=== PATIENT | male | born 1990 | race Caucasian/White ===

== ENCOUNTER 2018-03-01 09:58 | Emergency (ER) | payer OTHER ==
[2018-03-01 10:21] VITALS: BP 138/84
--- NOTE | 2018-03-01 10:43 | ED ---
Lower Extremity - HPI Summary HPI Summary: Patient is a 27-year-old male who presents after a wrestling incident to the right ankle. He states he was put in a Achilles LOC which pulls up on the Achilles tendon intending to snap at. This occurred yesterday and he is then unable to ambulate since that time. There is diffuse ecchymosis and swelling to the medial and lateral sides of the ankle. Pain is 5 out of 10, constant and throbbing, worse with ambulation, better with rest. He has been icing the ankle. He arising crutches, however he does not have the area wrapped. He has never injured the ankle before. He has not been taking any medication for relief and states he is otherwise well and denies any other complaints. Denies any numbness or tingling to the area. Denies any temperature changes. Pulses + 2 intact bilaterally P [place] and posterior tibial. - History of Current Complaint Chief Complaint: EDExtremityLower Stated Complaint: RT ANKLE INJURY Time Seen by Provider: 03/01/18 10:02 Hx Obtained From: Patient Mechanism Of Injury: Twisted Onset of Pain: Immediate Onset/Duration: Days Severity Initially: Mild Severity Currently: Mild Pain Intensity: 2 Pain Scale Used: 0-10 Numeric Timing: Constant Location: Is Discrete @ - Right medial and lateral ankle Character Of Pain: Aching Aggravating Factor(s): Standing, Ambulation Alleviating Factor(s): Rest Able to Bear Weight: No - Risk Factors Gout Risk Factors: Negative DVT Risk Factors: Negative Septic Arthritis Risk Factor: Negative - Allergies/Home Medications Allergies/Adverse Reactions: Allergies Allergy/AdvReac Type Severity Reaction Status Date / Time No Known Allergies Allergy Verified 03/01/18 10:31 PMH/Surg Hx/FS Hx/Imm Hx Previously Healthy: Yes Respiratory History: Reports: Hx Asthma - albuterol nebs and inhalers as needed - Immunization History Hx Pertussis Vaccination: No Immunizations Up to Date: Unable to Obtain/Confirm Infectious Disease History: No Infectious Disease History: Denies: History Other Infectious Disease, Traveled Outside the [place] in Last 30 Days - Family History Known Family History: Positive: None - Social History Occupation: Employed Full-time Lives: With Family Alcohol Use: None Hx Substance Use: Yes Substance Use Type: Reports: Marijuana Hx Tobacco Use: No Smoking Status (MU): Never Smoked Tobacco Review of Systems Constitutional: Negative Negative: Fever, Chills, Fatigue, Skin Diaphoresis Negative: Photophobia, Blurred Vision ENT: Negative Cardiovascular: Negative Negative: Shortness Of Breath, Cough Genitourinary: Negative Positive: no symptoms reported, see HPI Positive: Arthralgia - bilateral ankle swelling and ecchymosis with pain Positive: Bruising Neurological: Negative All Other Systems Reviewed And Are Negative: Yes Physical Exam Triage Information Reviewed: Yes Vital Signs On Initial Exam: Initial Vitals Temp Pulse Resp BP Pulse Ox 98.2 F 74 20 138/84 99 03/01/18 10:18 03/01/18 10:18 03/01/18 10:18 03/01/18 10:18 03/01/18 10:18 Vital Signs Reviewed: Yes Appearance: Positive: Well-Appearing, Well-Nourished Skin: Positive: Warm, Skin Color Reflects Adequate Perfusion, Other - Ecchymosis to the medial and lateral ankle Head/Face: Positive: Normal Head/Face Inspection Eyes: Positive: EOMI, GYPSY, Conjunctiva Clear Neck: Positive: Supple, No Lymphadenopathy Respiratory/Lung Sounds: Positive: Clear to Auscultation, Breath Sounds Present Cardiovascular: Positive: Normal, Pulses are Symmetrical in both Upper and Lower Extremities Musculoskeletal: Positive: Pain @ - Plantar flexion and dorsiflexion of the right ankle. Denies any knee pain. Able to move about the toes freely Neurological: Positive: Speech Normal Psychiatric: Positive: Normal, Affect/Mood Appropriate AVPU Assessment: Alert Diagnostics - Vital Signs Vital Signs Temp Pulse Resp BP Pulse Ox 03/01/18 10:18 98.2 F 74 20 138/84 99 - Laboratory Lab Statement: Any lab studies that have been ordered have been reviewed, and results considered in the medical decision making process. Lower Extremity Course/Dx - Course Course Of Treatment: During the course of treatment, pulses obtained immediately on arrival due to swelling and ecchymosis around the area. Pulses + 2 intact bilaterally. Radial and posterior tibial. He denies any numbness or tingling and is able to plantarflex and dorsiflex. While lying in prone position, Achilles tendon with localized tenderness on palpation superior to the insertion of the tendon, however plantar flexion while squeezing gastrocnemius shows negative De Santiago test. Negative metal S tests. No crepitus with passive motion. Normal cap refill. Comparison to unaffected side , the right ankle is swollen both laterally and medially with ecchymosis surrounding. IMPRESSION: 1. JOINT EFFUSION OF THE RIGHT ANKLE WITH SOFT TISSUE SWELLING. 2. NO ACUTE OSSEOUS INJURY TO THE RIGHT ANKLE OR RIGHT FOOT. IF SYMPTOMS PERSIST,. RECOMMEND REPEAT IMAGING. Patient continues to be unable to bear weight. I have given him a follow-up with Dr. Galvin. The ankle was David bandaged. He will follow-up with Dr. Galvin this week. He is to elevate it, ice it and stay nonweightbearing unless tolerated. - Diagnoses Differential Diagnosis/HQI/PQRI: Positive: Contusion, Dislocation, Sprain, Strain, Tendonitis Provider Diagnoses: Joint effusion Discharge - Sign-Out/Discharge Documenting (check all that apply): Discharge/Admit/Transfer - Discharge Plan Condition: Stable Disposition: HOME Patient Education Materials: Swollen Ankle Joint (ED) Referrals: Lita Law MD [Primary Care Provider] - Dilan Galvin MD [Medical Doctor] - Additional Instructions: Please keep the ankle wrapped Ice and elevation Follow-up with Dr. Galvin in his office Call today or tomorrow for an appointment Stay nonweightbearing unless you are beginning to be able to tolerate it Use your crutches - Billing Disposition and Condition Condition: STABLE Disposition: HOME
--- NOTE | 2018-03-01 11:33 | RAD ---
HISTORY: Right ankle injury, right foot injury COMPARISONS: January 01, 2016 VIEWS: 6, Frontal, lateral, and oblique views of the right ankle and right foot FINDINGS: BONE DENSITY: Normal. BONES: There is no displaced fracture. 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 This can be identified in retrospect on the previous examination and is essentially stable. JOINTS: There is no arthropathy. There is a tibiotalar joint effusion. ALIGNMENT: There is no dislocation. SOFT TISSUES: There is circumferential soft tissue swelling at the ankle. OTHER FINDINGS: None. IMPRESSION: 1. JOINT EFFUSION OF THE RIGHT ANKLE WITH SOFT TISSUE SWELLING. 2. NO ACUTE OSSEOUS INJURY TO THE RIGHT ANKLE OR RIGHT FOOT. IF SYMPTOMS PERSIST, RECOMMEND REPEAT IMAGING
== END 2018-03-01 12:38 | disposition home or self-care (01) ==
LOC: ED 09:58
DX: M25.471 Effusion, right ankle (principal); R60.0 Localized edema
CPT/HCPCS: 99281

== ENCOUNTER 2018-08-13 19:18 | Emergency (ER) | payer SELFPAY ==
[2018-08-13 19:48] VITALS: BP 118/81
--- NOTE | 2018-08-13 20:51 | UC ---
Ear Complaint HPI - HPI Summary HPI Summary: 27 y/o male presents to the urgent care c/o left ear pain and swollen lymph node around left ear for the past 4 days. Pt also c/o of rash in his scalp and mid chest. 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 He usually applies Ketaconazole cream, but now rash has some yellowish crusting over. Ear pain is dull 2/10 associated w/ some lumps in the neck . Pt denies fever, decrease hearing, tinnitus, SOB, dizziness, URI, chest pain abdominal pain. N/v/ D - History of Current Complaint Chief Complaint: UCEar Stated Complaint: EAR PAIN Time Seen by Provider: 08/13/18 20:35 Hx Obtained From: Patient Onset/Duration: Gradual Onset, Lasting Days - 4 days, Still Present, Worse Since - yesterday Severity Initially: Mild Severity Currently: Mild Pain Intensity: 3 Pain Scale Used: 0-10 Numeric Aggravating Factors: Other - touch Alleviating Factors: Nothing Associated Signs/Symptoms: Positive: Swelling @ - preauricular area - Allergies/Home Medications Allergies/Adverse Reactions: Allergies Allergy/AdvReac Type Severity Reaction Status Date / Time No Known Allergies Allergy Verified 08/13/18 19:48 PMH/Surg Hx/FS Hx/Imm Hx Previously Healthy: Yes Respiratory History: Asthma - as a child - Surgical History Surgical History: None - Family History Known Family History: Positive: Hypertension - Social History Occupation: Employed Full-time Lives: With Family Alcohol Use: None Substance Use Type: None Smoking Status (MU): Never Smoked Tobacco Review of Systems Constitutional: Negative Skin: Rash - in scalp, face and chest w/ a yellwoish crusting Eyes: Negative ENT: Ear Ache - left ear Respiratory: Negative Cardiovascular: Negative Gastrointestinal: Negative Genitourinary: Negative Motor: Negative Neurovascular: Negative Musculoskeletal: Negative Neurological: Negative Psychological: Negative Is Patient Immunocompromised?: No All Other Systems Reviewed And Are Negative: Yes Physical Exam - Summary Physical Exam Summary: Vital signs: reviewed General: well developed, well nourished male sitting in the examining table w/o any apparent distress Skin: [place], warm and dry, left lateral side of scalp, and mid chest w/ erythematous papules w/ yellowish crusting, mild tender to palpation, no swelling observed or drainage. HEENT: -Head: atraumatic, non tender; no scalp dermatitis. -Eyes: sclera and conjunctiva clear, PERRLA, EOMI -Ears: positive left preauricular and anterior lymphadenopathy, LF external ear canal with mild erythema and yellowish crusting around 7 0'clock. tenderness on palpation, LF TM WNL, Rt external ear canal clear and RT TM WNL. TMs normal w/out bulging or retraction. Good light reflex. No fluid level, vesicles, or bullae. No perforation.. -Nose/Face: erythematous and edematous nasal mucosa with clear rhinorrhea, no frontal or maxillary sinus tender to palpation. -Mouth/Throat: Mucous membrane moist, posterior pharynx clear, no erythema or exudates. Neck: supple, FROM, nontender, no lymphadenopathy, no meningismus. Chest: Clear to auscultation, normal breath sounds Abd: soft, Bowel sounds active, Nontender. Back: no spinal or CVAT Neuro: A&O x4, GCS 15, no focal neuro deficits, normal behavior for age. Triage Information Reviewed: Yes Vital Signs: Initial Vital Signs Temp 98.2 F 08/13/18 19:43 Pulse 68 08/13/18 19:43 Resp 16 08/13/18 19:43 BP 118/81 08/13/18 19:43 Pulse Ox 99 08/13/18 19:43 Ear Complaint Course/Dx - Course Course Of Treatment: 27 y/o male presents to the urgent care c/o left ear pain and swollen lymph node around left ear for the past 4 days. Pt also c/o of rash in his scalp and mid chest. 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 He usually applies Ketaconazole cream, but now rash has some yellowish crusting over. Ear pain is dull 2/10 associated w/ some lumps in the neck . Pt denies fever, decrease hearing, tinnitus, SOB, dizziness, URI, chest pain abdominal pain. N/v/D. Hx obtained. Pt w/ Left otitis externa and possible bacterial rash in his left side of scalp and chest on examination. Pt Rx Kelflex PO and Bactroban topical cream to alleviate bacterial rash. Also Cortisporin otic drops for his otitis externa as directed below. First dose given at the clinic tonight. Pt tolerated well medications. Pt advised if not improvement of symptoms to f/u w/ his PCP for further management. D/C instructions explained. Pt understood and agreed w/ plan of care. - Differential Dx/Diagnosis Differential Diagnosis/HQI/PQRI: Cellulitis, Cerumen Impaction, Otitis Externa, Otitis Media, Perforated TM, Other - tinea, bacterial rash Provider Diagnoses: 1 Left otitis externa. 2 rash Discharge - Sign-Out/Discharge Documenting (check all that apply): Patient Departure - D/C home All imaging exams completed and their final reports reviewed: No Studies - Discharge Plan Condition: Stable Disposition: HOME Prescriptions: Cephalexin CAP* [Keflex CAP*] 500 mg PO QID #27 cap Mupirocin 2% OINT* [Bactroban 2 % Oint*] 1 applic TOPICAL BID #1 tube Patient Education Materials: Otitis Externa (ED), Acute Rash (ED) Referrals: Lita Law MD [Primary Care Provider] - 3 Days Additional Instructions: 1-Please apply Cortisporin otic drops on your Left ear as directed. 2- Take Keflex PO as directed and Apply Bactroban topical cream as directed to alleviate your rash. first dose given tonight 3-If symptoms do not improve please f/u with your PCP or return to the urgent care for further evaluation and treatment. - Billing Disposition and Condition Condition: STABLE Disposition: Home - Attestation Statements Provider Attestation: I was available for consult. This patient was seen by the TANYA. The patient was not presented to, seen by, or examined by me. -Emanuel
[2018-08-13] MEDS ORDERED: Cephalexin CAP* 500 MG PO ONE (20:57)
[2018-08-13] MEDS ORDERED: Mupirocin 2% OINT* TUBE TOPICAL SCH (21:00)
[2018-08-13] MEDS: Neomyc/Polym/HC 1% OTIC SUSP* **OTIC LEFT EAR ONE ×2 (21:16→21:34)
[2018-08-13] MEDS ORDERED: Mupirocin 2% OINT* TUBE TOPICAL ONE (21:24)
== END 2018-08-13 21:40 | disposition home or self-care (01) ==
LOC: UCEAST 19:18
DX: H60.92 Unspecified otitis externa, left ear (principal); R21 Rash and other nonspecific skin eruption
CPT/HCPCS: 99213; A9270-GY; G0463